=== PATIENT | female | born 1975 | race Caucasian/White ===

== ENCOUNTER → 2017-12-07 08:19 | Outpatient (CLI) | payer MEDICAID | END | disposition home or self-care (01) | LOC: D.CT 08:19 | DX: E34.9 Endocrine disorder, unspecified (principal) ==

== ENCOUNTER → 2017-12-26 20:04 | Outpatient (CLI) | payer MEDICAID | END | disposition home or self-care (01) | LOC: D.MAMMO 14:45 | DX: Z12.31 Encounter for screening mammogram for malignant neoplasm of breast (principal) ==

== ENCOUNTER → 2018-01-02 14:34 | Outpatient (CLI) | payer MEDICAID | END | disposition home or self-care (01) | LOC: D.MRI 14:34 | DX: C75.1 Malignant neoplasm of pituitary gland (principal) ==